=== PATIENT | male | born 1950 | race Caucasian/White ===

== ENCOUNTER → 2019-06-02 | Outpatient (CLI) | payer OTHER ==
[~2019-06-02] MED LIST: IOHEXOL 180 MG/ML 10 ML VIAL. INT ART ONE; LIDOCAINE 1% Multi-Dose 20 ML VIAL. ID ONE
--- NOTE | 2019-06-03 08:45 | KCIC ---
CT arthrogram of the left shoulder HISTORY: Left shoulder pain. Patient fell May 08, 2019. FINDINGS: Full-thickness rotator cuff tear at the posterior supraspinatus tendon measures 1 cm AP diameter. Retraction measures 1.5 cm. More superficial linear areas of partial articular surface tearing of the critical zone of the more anterior supraspinatus tendon. Partial linear tearing also extends through the inferior surface of the infraspinatus tendon. Partial subscapularis tendon tear. Contrast does accumulate in the subdeltoid bursa. Deformity of the posterior inferior labrum suspicious for tearing or degeneration. Mild contrast extending into the superior labrum compatible with a tear. Biceps tendon appears grossly intact and within the bicipital groove. Acromioclavicular joint is mildly degenerative. Glenohumeral joint demonstrates no advanced cartilage thinning or focal defect. No evidence of acute fracture. No aggressive bone destruction. No acute soft tissue abnormalities identified. Pacemaker leads are noted in the left anterior chest. IMPRESSION: 1. Full-thickness rotator cuff tear of the posterior supraspinatus tendon with mild retraction. Partial tearing of the remaining rotator cuff. 2. Superior labral tear. 3. Deformity of the posterior inferior labrum also suspicious for tear. Electronically signed by: Karthikeyan Almanza MD (06/03/2019 8:42 AM) [id number]
--- NOTE | 2019-06-03 08:47 | KCIC ---
Left shoulder contrast injection using fluoroscopic guidance prior to CT History: Left shoulder pain after an injury. Technique: The procedure and associated risks, including infection, bleeding or allergic reaction, were explained to the patient. Informed written consent was obtained. Time-out procedure was performed. The anterior shoulder was prepped and draped in usual sterile manner. Local anesthetic was obtained with lidocaine. A 22 gauge needle was advanced without difficulty into the glenohumeral joint. After negative aspiration, a mixture of 15 cc Omnipaque 180 contrast and 5 cc 1 percent lidocaine mixture was injected without difficulty, to a total volume of 12 cc. Needle was removed. Patient tolerated the procedure well without immediate complication and left in stable condition. Patient was given postprocedural instructions. 3 spot images were obtained. These demonstrate evidence of a rotator cuff tear with spill of contrast into the subdeltoid bursa. Fluoroscopy time: ?31 seconds Electronically signed by: Karthikeyan Almanza MD (06/03/2019 8:44 AM) [facility]
== END | disposition home or self-care (01) ==
LOC: KCIC 14:22
PROVIDERS: ATTEND Family Medicine
DX: M25.512 Pain in left shoulder (principal)
CPT/HCPCS: 23350; 73201; 77002; Q9965; 73040

== ENCOUNTER → 2020-06-08 | Outpatient (CLI) | payer OTHER, BC, MEDICARE ==
[~2020-06-08] MED LIST changes: -IOHEXOL 180 MG/ML 10 ML VIAL. INT ART ONE; +IOHEXOL 300 MG/ML 50 ML VIAL. INT ART ONE
--- NOTE | 2020-06-08 14:30 | KCIC ---
EXAM: Fluoroscopically guided left shoulder joint injection for CT arthrogram INDICATION: Left shoulder pain, evaluate for rotator cuff tear. Prior surgery with rotator cuff repai r on 11/03/2019 COMPARISON: CT arthrogram left shoulder 06/02/2019 TECHNIQUE/FINDINGS: The purpose of the procedure and risks including infection, bleeding, contrast reaction, and pain wer e discussed with the patient. Informed consent was obtained. A timeout was performed. After obtaining consent, the patient was placed supine on the fluoroscopy table with the left shoulde r externally rotated. The skin overlying the left glenohumeral joint was marked, sterilized and drap ed. Superficial and deep soft tissues were anesthetized with 1% lidocaine. Utilizing fluoroscopic g uidance, a 22-gauge 1.5 inch needle was advanced into the joint. Intraarticular position was confirme d with injection of a small amount of iodinated contrast. Subsequently, 30 mL of a solution containi ng the following items was instilled into the joint: 10 mL of 1% lidocaine, 10 mL non-ionic iodinate d contrast. At the end of the procedure, the needle was removed. The overlying skin was cleansed and covered wit h a bandaid. The patient tolerated the procedure well and was free of immediate complications. The p atient was transferred for the CT portion of the exam in stable condition. Total fluoroscopic time: 31 seconds. One image acquired. IMPRESSION: Technically successful left glenohumeral joint injection for the purposes of CT arthrogr am. Electronically signed by: Saritha John MD (06/08/2020 2:28 PM) [id number]
--- NOTE | 2020-06-08 17:24 | KCIC ---
EXAMINATION: CT LEFT UPPER EXTREMITY WITH, 06/08/2020 1:35 PM CLINICAL INDICATION: Left shoulder pain, evaluate for rotator cuff tear. Rotator cuff repair in October 2019 COMPARISON: CT left shoulder 06/02/2019 TECHNIQUE: Helical CT imaging performed of the left shoulder without the use of intravenous contrast. Sagittal and coronal reformats were obtained. One or more of the following individualized dose reduction techniques were utilized for this examinat ion: 1. Automated exposure control 2. Adjustment of the mA and/or kV according to patient size 3. Use of iterative reconstruction technique. FINDINGS: Rotator cuff: There are surgical changes of rotator cuff repair. There is a recurrent full-thickness tear of the mid and posterior supraspinatus tendon and now full-thickness tear of the entire infraspi natus tendon. The tear measures overall at least 4.5 cm in sagittal diameter and approximately 3.6 cm coronal diameter. There is retraction of the infraspinatus tendon, to the glenoid or medial to the g lenoid. Mildly increased retraction of supraspinatus tendon over the medial humeral head. The subscap ularis tendon is grossly intact. New moderate infraspinatus muscle atrophy. Unchanged mild supraspina tus muscle atrophy. Biceps tendon and labrum: Biceps tendon is grossly intact and normal in position. There is new blunti ng of the superior labrum and blunting and irregularity of the posterior labrum which could be tearin g or sequela debridement. Acromioclavicular joint: Unchanged mild degenerative joint disease. Glenohumeral joint: No full-thickness cartilage loss. No acute fracture. Humeral head is high riding and there is mild widening of the joint posteriorly. Other: Contrast distends the joint, communicates with the bursa, and with the acromioclavicular joint . Left chest wall pacemaker noted. Visualized portion of the left lung is clear. IMPRESSION: 1. Surgical changes of rotator cuff repair. Recurrent full-thickness tear of mid and posterior supra spinatus tendon with slightly increased retraction to the medial humeral head. Unchanged mild suprasp inatus muscle atrophy. 2. Recurrent, now complete full-thickness tear of the infraspinatus tendon with retraction of the inf raspinatus tendon to or medial to the glenoid and new moderate infraspinatus muscle atrophy. 3. Superior and posterior superior labral debridement versus tearing. Electronically signed by: Saritha John MD (06/08/2020 5:21 PM) [id number]
== END | disposition home or self-care (01) ==
LOC: KCIC 12:51
PROVIDERS: ATTEND Orthopaedic Surgery
DX: M25.512 Pain in left shoulder (principal); M75.102 Unspecified rotator cuff tear or rupture of left shoulder, not specified as traumatic; M62.58 Muscle wasting and atrophy, not elsewhere classified, other site; Z88.8 Allergy status to other drugs, medicaments and biological substances
CPT/HCPCS: 23350; 73201; 77002; J3490; Q9967; 73040